=== PATIENT | female | born 1995 | race Caucasian/White ===

== ENCOUNTER 2020-05-12 14:40 | Emergency (ER) | payer MEDICAID ==
--- NOTE | 2020-05-12 15:28 | CR ---
Right shoulder: 3 views of the right shoulder were obtained. Comparison: No prior right shoulder exam is available. Distal clavicle is elevated compatible with AC separation. Bony density is seen off the inferior clavicle likely representing partial fracture. Small bony density off the acromion process are seen which are felt compatible with small fracture fragments. Uncertain how much of this is acute or chronic as there is evidence of previous surgery between the clavicle and coracoid process. No additional abnormality is appreciated. Impression: 1. Prior trauma within the acromioclavicular joint with small fracture fragments. Uncertain if this is acute or old as there is previous surgery being seen involving the acromioclavicular joint. 2. No additional abnormality is appreciated. Diagnostic code #3 This report was dictated in MDT
--- NOTE | 2020-05-12 15:30 | CT ---
CT cervical spine Technique: Multiple axial sections through the cervical spine were obtained. Reconstructed coronal and sagittal images were obtained. Study obtained from both C1 inferiorly to the bottom of T2. Comparison: No prior cervical spine imaging is available. Findings: Vertebral body heights and disc spaces are maintained. Vertebral bodies and posterior arches are intact. No fracture is appreciated. No bony central or bony neural foraminal stenosis is seen. No abnormal subluxation is seen on the reconstructed sagittal images. Impression: 1. Nothing acute is appreciated on CT study of the cervical spine. Diagnostic code #1 This report was dictated in MDT
--- NOTE | 2020-05-12 15:30 | CT ---
Head CT Technique: Multiple axial sections through the brain were obtained. Intravenous contrast was not utilized. Artifact noted from ear jewelry. Comparison: No prior intracranial imaging is available. Findings: Ventricles along with basal cisterns and sulci over the convexities are within normal limits for the patient's age. No abnormal parenchymal densities are seen. No evidence of intracranial hemorrhage. No midline shift or mass-effect is appreciated. Visualized mastoid sinuses and paranasal sinuses are clear. No acute calvarial finding is seen. Impression: 1. Nothing acute is identified on noncontrast head CT exam. Diagnostic code #1 This report was dictated in MDT
--- NOTE | 2020-05-12 15:39 | EDM.PDOC ---
ED HPI GENERAL MEDICAL PROBLEM - General Chief Complaint: Trauma Stated Complaint: [facility] Time Seen by Provider: 05/12/20 14:45 Source of Information: Reports: Patient, EMS History Limitations: Reports: No Limitations - History of Present Illness INITIAL COMMENTS - FREE TEXT/NARRATIVE: The patient presents by [facility] for a horse accident. She was riding with a group of friends when a dog came and spooked some horses and she got bucked off the the horse. She landed her head, right shoulder and neck. She had no LOC. She vomited after. She had no LOC. She has no numbness or weakness. She does have a headache, neck pain and right shoulder pain. She has no numbness or weakness. She had surgery on the right shoulder in the past. Onset: Sudden Duration: Minutes: Location: Reports: Head, Neck, Upper Extremity, Right (shoulder) Quality: Reports: Sharp Severity: Moderate Improves with: Reports: Immobilization Worsens with: Reports: Movement Context: Reports: Trauma (Bucked off of horse) Associated Symptoms: Reports: Headaches, Nausea/Vomiting. Denies: Chest Pain, Cough, Fever/Chills, Shortness of Breath Neck Pain Score (Numeric/FACES): 7 - Related Data Home Meds: Home Meds Estrogens, Conjugated [Premarin] 0.3 mg PO DAILY 05/12/20 [History] Insulin Glarg,Human.Rec.Analog [Lantus] 16 units SQ BEDTIME 05/12/20 [History] Insulin Glarg,Human.Rec.Analog [Lantus] 24 units SQ QAM 05/12/20 [History] Insulin Lispro [HumaLOG] 0 units SQ TID 05/12/20 [History] Past Medical History QUAR[employer] History: Reports: Polycystic Ovaries Endocrine/Metabolic History: Reports: Diabetes, Type II Social & Family History - Tobacco Use Smoking Status *Q: Never Smoker - Recreational Drug Use Recreational Drug Use: No Review of Systems - Review of Systems Review Of Systems: See Below Constitutional: Reports: No Symptoms Eyes: Reports: No Symptoms Ears: Reports: No Symptoms Nose: Reports: No Symptoms Mouth/Throat: Reports: No Symptoms Respiratory: Reports: No Symptoms Cardiovascular: Reports: No Symptoms GI/Abdominal: Reports: No Symptoms Genitourinary: Reports: No Symptoms Musculoskeletal: Reports: Neck Pain, Shoulder Pain (Right) Neurological: Reports: Headache ED EXAM, GENERAL - Physical Exam Exam: See Below Exam Limited By: No Limitations General Appearance: Alert, No Apparent Distress Ears: Normal External Exam Nose: Normal Inspection Head: Atraumatic, Normocephalic Neck: Normal Inspection, Supple, Tender Midline (Mild to moderate) Respiratory/Chest: No Respiratory Distress, Lungs Clear, Normal Breath Sounds Cardiovascular: Regular Rate, Rhythm, No Edema, No Murmur GI/Abdominal: Soft, Non-Tender, No Organomegaly, No Mass Back Exam: Normal Inspection Extremities: Other (Pain upon palpation to the shoulder. There are old scars to the shoulder. Good sensation and pulses distally.) Neurological: Alert, Oriented, No Motor/Sensory Deficits Course - Vital Signs Last Recorded V/S: Last Vital Signs Temp 97.4 F 05/12/20 14:55 Pulse 78 05/12/20 14:55 Resp 16 05/12/20 14:55 BP 128/87 05/12/20 14:55 Pulse Ox 98 05/12/20 14:55 - Orders/Labs/Meds Orders: Active Orders 24 hr Category Date Time Status Durable Medical Equipment for Discharge [DME for Oth 05/12/20 15:49 Ordered Discharge] [COMM] Stat - Re-Assessments/Exams Free Text/Narrative Re-Assessment/Exam: 05/12/20 15:[address] of her head, cervical spine and an x-ray of her shoulder. The CT of her head and cervical spine shows nothing acute. The x-ray of her shoulder shows prior trauma within the acromioclavicular joint with small fracture fragments. Uncertain if this is acute or old as there is previous surgery being seen involving the acromioclavicular joint. No additional abnormality is appreciated. 05/12/20 15:50 I will get her a sling and a copy of her x-rays she lives in [place]. Departure - Departure Time of Disposition: 15:50 Disposition: DC/Tfer to Medicaid [facility] 62 Condition: Good Clinical Impression: Injury while horseback riding Concussion Qualifiers: Encounter type: initial encounter Loss of consciousness presence/duration: without LOC Qualified Code(s): S06.0X0A - Concussion without loss of consciousness, initial encounter Sprain of right shoulder Qualifiers: Encounter type: initial encounter Shoulder sprain type: unspecified sprain Qualified Code(s): S43.401A - Unspecified sprain of right shoulder joint, initial encounter Cervical strain Qualifiers: Encounter type: initial encounter Qualified Code(s): S16.1XXA - Strain of muscle, fascia and tendon at neck level, initial encounter - Discharge Information *PRESCRIPTION DRUG MONITORING PROGRAM REVIEWED*: Not Applicable *COPY OF PRESCRIPTION DRUG MONITORING REPORT IN PATIENT ELOY: Not Applicable Forms: ED Department Discharge Additional Instructions: Ice the areas that hurt for 15 minutes 3 times per day for 2 days. Take tylenol or motrin for pain. Wear a sling for comfort. Follow up with your doctor when you get home. Sepsis Event Note (ED) - Evaluation Sepsis Screening Result: No Definite Risk - Focused Exam Vital Signs: Vital Signs Temp Pulse Resp BP Pulse Ox 05/12/20 14:55 97.4 F 78 16 128/87 98 05/12/20 14:43 98 F 96 16 144/92 H 100 - My Orders Last 24 Hours: My Active Orders 05/12/20 15:49 Durable Medical Equipment for Discharge [DME for Discharge] [COMM] Stat - Assessment/Plan Last 24 Hours: My Active Orders 05/12/20 15:49 Durable Medical Equipment for Discharge [DME for Discharge] [COMM] Stat
== END 2020-05-12 16:08 ==
LOC: JD.ED 14:40
DX: S06.0X0A Concussion without loss of consciousness, initial encounter (principal); S43.401A Unspecified sprain of right shoulder joint, initial encounter; S16.1XXA Strain of muscle, fascia and tendon at neck level, initial encounter; E11.9 Type 2 diabetes mellitus without complications; Z79.4 Long term (current) use of insulin; V80.010A Animal-rider injured by fall from or being thrown from horse in noncollision accident, initial encounter; Y93.52 Activity, horseback riding
CPT/HCPCS: 70450; 70450-26; 72125; 72125-26; 73030-26-RT; 73030-RT; 99283; 99285-25